=== PATIENT | male | born 1980 | race Caucasian/White ===

== ENCOUNTER 2019-11-26 17:01 | Emergency (ER) | payer OTHER ==
[~2019-11-26] VITALS: Ht 177.8 cm; Wt 127.0 kg
[~2019-11-26 17:01] MED LIST: HYDACE5 PO; LOVENOX SQ; NAPR500 PO; OXYACE5T PO; RXHYDACE PO; RXMETA800 PO; RXNAPNA550 PO; WARF10 PO; WARF5 PO
== END 2019-11-26 18:00 | disposition home or self-care (01) ==
LOC: ER 17:01
DX: S56.128A Laceration of flexor muscle, fascia and tendon of left little finger at forearm level, initial encounter (principal); Z23 Encounter for immunization; W26.0XXA Contact with knife, initial encounter
CPT/HCPCS: 12001; 90471; 90714; 99282-25

== ENCOUNTER 2020-08-19 13:09 | Emergency (ER) | payer OTHER ==
[~2020-08-19] VITALS: Ht 177.8 cm; Wt 131.5 kg
[2020-08-19] MEDS ORDERED: CYCL10 PO (14:39)
== END 2020-08-19 15:13 | disposition home or self-care (01) ==
LOC: ER 13:09
DX: M54.5 Low back pain (principal); G89.29 Other chronic pain; F17.220 Nicotine dependence, chewing tobacco, uncomplicated; Z86.718 Personal history of other venous thrombosis and embolism
CPT/HCPCS: 72100; 96372; 99283-25; A9270; J1885

== ENCOUNTER 2024-03-28 20:59 | Emergency (ER) | payer OTHER ==
[~2024-03-28] VITALS: Ht 177.8 cm; Wt 136.1 kg
[~2024-03-28 20:59] MED LIST changes: +CYCL10 PO
[2024-03-28] MEDS ORDERED: Ondansetron HCl 2 MG / ML 2ML Vial IV ONE (21:15)
[2024-03-28] MEDS ORDERED: Ketorolac Tromethamine 30mg Vial IV ONE (21:25)
[2024-03-28 21:31] LABS: BASOPHILS ABSOLUTE AUTO 0.05 K/mm3 (0.00-0.23); BASOPHILS PERCENT AUTO 1 % (0-2); EOSINOPHILS ABSOLUTE AUTO 0.22 K/mm3 (0.00-0.68); EOSINOPHILS PERCENT AUTO 3 % (0-6); Hematocrit 41.9 % (37.0-53.0); Hemoglobin 13.9 g/dL (13.5-17.5); IMMATURE GRAN ABSOLUTE AUTO 0.03 K/mm3 (0.00-0.10); IMMATURE GRAN PERCENT AUTO 0 % (0-1); LYMPHOCYTES PERCENT AUTO 30 % (21-46); MONOCYTES ABSOLUTE AUTO 0.82 K/mm3 (0.16-1.47); MONOCYTES PERCENT AUTO 10 % (4-13); Mean Corpuscular HGB 28.1 pg (26.0-34.0); Mean Corpuscular HGB Conc 33.2 g/dL (31.5-36.5); Mean Corpuscular Volume 85 fL (80-100); Mean Platelet Volume 9.7 fL (9.1-12.4); NEUTROPHILS ABSOLUTE AUTO 4.83 K/mm3 (1.96-9.15); NEUTROPHILS PERCENT AUTO 57 % (41-73); Platelet Count 304 K/mm3 (150-400); RDW Coefficient Variation 13.6 % (11.7-14.2); RDW Standard Deviation 42.2 fL (35.1-46.3); Red Blood Cell Count 4.94 M/mm3 (4.30-5.90); White Blood Cell Count 8.45 K/mm3 (4.00-11.30)
[2024-03-28 21:33] LABS: Source, Urine Clean Catch
[2024-03-28 21:40] LABS: Appearance, Urine Clear (Clear); Bilirubin, Urine Neg (Neg); Blood, Urine 4+ (Neg); Color, Urine Yellow (P-Yellow); Glucose Qualitative, Urine Neg (Neg); Ketones, Urine Neg (Neg); Leukocyte Esterase, Urine Neg (Neg); Nitrite, Urine Neg (Neg); Protein, Urine 1+ (Neg); Urobilinogen, Urine NORM (Normal)
[2024-03-28 21:47] LABS: Bacteria Rare /hpf; Squamous Epithelial Cells Rare /hpf (Few); White Blood Cells, Urine 0-2 /hpf (0-5)
[2024-03-28 21:51] LABS: Albumin, Blood 3.8 g/dL (3.4-5.0); Albumin/Globulin Ratio 1.2 (0.8-1.8); Bilirubin, Total 0.3 mg/dL (0.1-1.0); Bun/Creatinine Ratio 20.2 (12.0-20.0); Calcium, Blood 8.8 mg/dL (8.5-10.1); Creatinine, Blood 1.04 mg/dL (0.60-1.20); Globulin, Blood 3.3 g/dL (2.2-4.0); Potassium, Blood 3.8 mmol/L (3.5-5.5); Total Protein, Blood 7.1 g/dL (6.4-8.2)
[2024-03-28] MEDS ORDERED: Lactated Ringer's 1,000 ML IV ONE (22:10)
[2024-03-28] MEDS ORDERED: ONDA4ODT MM (23:27)
[2024-03-28] MEDS ORDERED: TAMS.4ER PO (23:27)
[2024-03-28] MEDS ORDERED: RX Prepack 6 Tabs Oxycodone 5mg UD ONE (23:30)
[2024-03-28] MEDS ORDERED: RX Prepack 2 Tabs Ondansetron ODT 4MG UD ONE (23:30)
[2024-03-28 23:51] VITALS: BP 144/76
== END 2024-03-28 23:52 | disposition home or self-care (01) ==
LOC: ER 20:59
PROVIDERS: Student in an Organized Health Care Education/Training Program
DX: N13.2 Hydronephrosis with renal and ureteral calculous obstruction (principal); R91.1 Solitary pulmonary nodule; Z87.891 Personal history of nicotine dependence
CPT/HCPCS: 74176; 80053; 81001; 83690; 85025; 96374; 96375; 99284-25; A9270; J1885; J2405; J7120